=== PATIENT | male | born 1990 | race Two or more races ===

== ENCOUNTER 2018-05-31 08:22 | Day surgery (SDC) | payer OTHER ==
[~2018-05-31 08:22] MED LIST: Acetaminophen/HYDROcodone 325-10 MG Tab PO PRN; Bupivacaine 0.5% 30 ML SDV ONE; Bupivacaine 25%/EPINEPHrine/PF 30 ML ONE; Dexamethasone 4 MG/ML 5 ML MDV ONE; Ketorolac 10 MG Tab PO PRN; Lactated Ringers 1,000 ML IV SCH; Lidocaine 2% 5 ML SDV ONE; Midazolam 1 MG/ML 2 ML SDV ONE; Propofol 200 MG/20 ML SDV ONE; Sodium Chloride 0.9% 20 ML ONE; ceFAZolin 1 GM Vial ONE; ceFAZolin 2 GM in Premix Bag 1 BAG IV SCH; fentaNYL 100 MCG/2 ML SDV ONE; fentaNYL 250 MCG/5 ML SDV ONE
--- NOTE | 2018-05-31 08:57 | PCM.PREANE ---
Preanesthetic Assessment - Anesthesia/Transfusion/Family Hx Anesthesia History: Prior Anesthesia Without Reaction Family History of Anesthesia Reaction: No Transfusion History: No Prior Transfusion(s) - Review of Systems General: No Symptoms Pulmonary: No Symptoms Cardiovascular: No Symptoms Gastrointestinal: No Symptoms Neurological: No Symptoms Other: Reports: None - Physical Assessment NPO Status Date: 05/30/18 NPO Status Time: 21:00 Height: 1.65 m Weight: 81.647 kg ASA Class: 2 (healthy) Mental Status: Alert & Oriented x3 Airway Class: Mallampati = 2 Dentition: Reports: Normal Dentition ROM/Head Extension: Full Lungs: Clear to Auscultation - Allergies Allergies/Adverse Reactions: Allergies Allergy/AdvReac Type Severity Reaction Status Date / Time No Known Allergies Allergy Verified 05/31/18 08:57 - Anesthesia Plan Pre-Op Medication Ordered: None - Acknowledgements Anesthesia Type Planned: General Anesthesia, Regional Block Pt an Appropriate Candidate for the Planned Anesthesia: Yes Alternatives and Risks of Anesthesia Discussed w Pt/Guardian: Yes Pt/Guardian Understands and Agrees with Anesthesia Plan: Yes PreAnesthesia Questionnaire Gastrointestinal History: Reports: GERD Musculoskeletal History: Reports: Other (See Below) Other Musculoskeletal History: occasional back pain - Past Surgical History Head Surgeries/Procedures: Reports: None GI Surgical History: Reports: Cholecystectomy, Other (See Below) Other GI Surgeries/Procedures: pyloromyotomy as a - SUBSTANCE USE Smoking Status *Q: Never Smoker Recreational Drug Use History: No - HOME MEDS Home Medications: Home Meds Famotidine [Acid C.O.D. Biller] 1 tab PO ASDIRECTED PRN 05/26/18 [History] - CURRENT (IN HOUSE) MEDS Current Meds: Current Medications Hydrocodone Bitart/Acetaminophen ([place] 325-10 Mg) 1 - 2 tab PO Q4H PRN PRN Reason: Pain Cefazolin Sodium/Dextrose 2 gm (/ Premix) 50 mls @ 100 mls/hr IV ONCALL KAROL Lactated Ringer's (Ringers, Lactated) 1,000 mls @ 100 mls/hr IV ASDIRECTED [facility] Ketorolac Tromethamine (Toradol) 10 mg PO Q6H PRN PRN Reason: Pain Stop: 06/05/18 08:01 Discontinued Medications Bupivacaine HCl (Marcaine 0.5%) Confirm Administered Dose 30 ml .ROUTE .STK-MED ONE Stop: 05/31/18 07:46 Cefazolin Sodium (Ancef) Confirm Administered Dose 2 gm .ROUTE .STK-MED ONE Stop: 05/31/18 07:25 Dexamethasone (Dexamethasone) Confirm Administered Dose 20 mg .ROUTE .STK-MED ONE Stop: 05/31/18 07:38 Fentanyl (Sublimaze) Confirm Administered Dose 100 mcg .ROUTE .STK-MED ONE Stop: 05/31/18 07:24 Fentanyl (Sublimaze) Confirm Administered Dose 250 mcg .ROUTE .ST-MED ONE Stop: 05/31/18 07:25 Sodium Chloride (Normal Saline) Confirm Administered Dose 20 mls @ as directed .ROUTE .ST-MED ONE Stop: 05/31/18 07:25 Bupivacaine HCl/Epinephrine Bitart (Sensorc Mpf 0.25%-Epi 1:[id number]) Confirm Administered Dose 30 mls @ as directed .ROUTE .STK-MED ONE Stop: 05/31/18 07:46 Lidocaine (Xylocaine-Mpf 2%) Confirm Administered Dose 10 ml .ROUTE .ST-MED ONE Stop: 05/31/18 07:24 Midazolam HCl (Versed 1 Mg/Ml) Confirm Administered Dose 2 mg .ROUTE .STK-MED ONE Stop: 05/31/18 07:24 Propofol (Diprivan 20 Ml) Confirm Administered Dose 400 mg .ROUTE .STK-MED ONE Stop: 05/31/18 07:24
--- NOTE | 2018-05-31 09:00 | PCM.SN ---
- Free Text/Narrative Note: discussed inter-scalene block as a means of post operative pain management He verbalized understanding of procedure and would like to proceed
[2018-05-31] MEDS ORDERED: fentaNYL 100 MCG/2 ML SDV IVPUSH PRN (10:26)
[2018-05-31] MEDS ORDERED: HYDROmorphone 2 MG/ML SDV IVPUSH ONE (10:26)
--- NOTE | 2018-05-31 10:37 | PCM.SN ---
- Free Text/Narrative Note: [id number] Right inter-scalene block for post operative pain control: Chloroprep skin prep. Stimuplex needle set at 0.8 good twitch right delt and bicep diminishes at 0.4 gone at 0.3 returns at 0.8 instilled 40 mil of mixture 20 ml 0.5 % marcaine and 20 ml 0.25 % marcaine with epinephrine1:200 k and 8 mg decadron patient reports onset of numb sensation and decreased ability to lift arm 2 mg versed and 50 ug fentanyl were used for procedure sedation and vitals remained in stable limits
[2018-05-31] MEDS ORDERED: Propofol 200 MG/20 ML SDV ONE (10:40)
[2018-05-31] MEDS ORDERED: fentaNYL 100 MCG/2 ML SDV ONE (11:04)
[2018-05-31] MEDS ORDERED: Phenylephrine/Normal Saline 100 MCG/ML 10 ML Syringe ONE (11:16)
--- NOTE | 2018-05-31 11:32 | PCM.OPNOTE ---
- General Post-Op/Procedure Note Date of Surgery/Procedure: 05/31/18 Operative Procedure(s): R shoulder arthroscopy with SAD, limited debridement, and RTCR Post-Op Diagnosis: R shoulder impingement with deg ant labrum tear and RTC tear Anesthesia Technique: General ET Tube, Regional Block Primary Surgeon: Pricilla You Seed Expert: Adriana Odell in mLs: 10 Condition: Good Free Text/Narrative:: #[id number]
--- NOTE | 2018-05-31 13:26 | PCM.POSTAN ---
POST ANESTHESIA ASSESSMENT - MENTAL STATUS Mental Status: Alert, Oriented - RESPIRATORY Respiratory Status: Respiratory Rate WNL, Airway Patent, O2 Saturation Stable - CARDIOVASCULAR CV Status: Pulse Rate WNL, Blood Pressure Stable - GASTROINTESTINAL GI Status: No Symptoms - POST OP HYDRATION Hydration Status: Adequate & Stable
--- NOTE | 2018-05-31 13:27 | PCM48HPAN ---
Post Anesthesia Note - EVALUATION WITHIN 48HRS OF ANESTHETIC Vital Signs in Normal Range: Yes Patient Participated in Evaluation: Yes Respiratory Function Stable: Yes Airway Patent: Yes Cardiovascular Function Stable: Yes Hydration Status Stable: Yes Pain Control Satisfactory: Yes Nausea and Vomiting Control Satisfactory: Yes Mental Status Recovered: Yes Resp Rate: 16
--- NOTE | 2018-05-31 13:30 | OR ---
SURGEON: Pricilla You MD DATE OF PROCEDURE: 05/31/2018 PREOPERATIVE DIAGNOSIS: Right shoulder impingement. POSTOPERATIVE DIAGNOSES: 1. Right shoulder impingement. 2. Right shoulder degenerative anterior labral tear. 3. Right partial bursal sided rotator cuff tear. PROCEDURES: Right shoulder arthroscopy with: 1. Subacromial decompression with release of coracoacromial ligament and acromioplasty. 2. Limited debridement including debridement of degenerative anterior labral tear. 3. Arthroscopic rotator cuff repair. PAINT STOCKMAN: Adriana Odlel PA-C. ANESTHESIA: General with interscalene block. ESTIMATED BLOOD LOSS: 10 mL. TOURNIQUET TIME: 0 minutes. COMPLICATIONS: None. DVT PROPHYLAXIS: PAS boots to bilateral lower extremities. IMPLANTS USED: One 4.5 mm Arthrex Corkscrew anchor and one 4.75 mm Arthrex SwiveLock anchor. BRIEF HISTORY: Abundio is a 27-year-old male, who has had complaint of continued right shoulder pain. He previously had a work-related injury and then sustained a second injury. Conservative treatment was attempted. Due to his lack of response to conservative treatment, I did recommend surgical intervention. The risks and goals of procedure were discussed with the patient and were documented preoperatively. He agreed to proceed. DESCRIPTION OF PROCEDURE: The patient was properly identified and brought to the operating room. He was transferred from the OR cart and placed on the operating table in supine position. General anesthesia was administered. An interscalene block had been administered preoperatively. After adequate anesthesia was obtained, the patient was placed into a beach-chair type position. Care was taken to pad all bony prominences. The head was secured. The right upper extremity was then prepped in standard fashion using ChloraPrep solution. It was then sterilely draped. A time-out was performed to ensure correct site and procedure. Preoperative antibiotics were given. The surgical site had been marked preoperatively. A marking pen was used to identify the bony landmarks. Approximately 30 mL normal saline was introduced into the glenohumeral joint. A posterior portal incision was made. Blunt trocar and cannula were introduced into the glenohumeral joint. Camera, inflow, and outflow were assembled. The rotator interval was visualized. No significant synovitis was noted. An anterior portal was then established. The subscapularis was probed. It was found to be intact. No loose bodies were identified within the subscapular recess. The biceps was then visualized. It was pulled into the joint to visualize distally. No tearing or synovitis was noted. The attachment of the biceps to the superior labrum appeared intact and there was no evidence of tearing. The anterior labrum did show some minor degenerative tearing, which was resected with the shaver. The labrum appeared stable without any tears. The posterior labrum showed no signs of degenerative findings. The glenoid and humeral head were then inspected. No degenerative changes were found. The axillary pouch showed no loose bodies or synovitis. The rotator cuff was then visualized. The bare area was noted posteriorly. As I progressed forward, there appeared to be no articular-sided tearing of the rotator cuff. The instruments were then removed from the glenohumeral joint. The blunt trocar and cannula were introduced into the subacromial space. A lateral portal was established. Extensive bursitis was noted and an extensive bursectomy was performed. The coracoacromial ligament was released off the anterior surface of the acromion. He did have a downward sloping acromion. Acromioplasty was performed using a 5.0 mm bur. This provided good decompression of the subacromial space. The rotator cuff was then inspected. He had extensive softening and thinning of the anterior portion. There appeared to be a significant bursal sided tear of the anterior portion of the supraspinatus. I elected to take down the remainder of the attachment, which was quite thin. The julio c was then used to roughen the bony surface in this area. The cuff showed no sign of retraction and appeared to be robust. The awl was then placed just lateral to the articular margin in approximately 45 degree angle. The awl and tap were used and the corkscrew anchor was inserted without difficulty. It showed good purchase within the bone. The suture passer was then used to pass the sutures through the rotator cuff. The sutures were then tied down, which gave good reapproximation of the rotator cuff to the bony footprint. I elected to place a lateral row to provide additional compression to the rotator cuff. A 4.5 mm SwiveLock was then placed laterally. This provided good compression of the rotator cuff edges. The rotator cuff was then probed. The repair appeared to be nearly watertight. The instruments were then removed from the shoulder. The portal sites were closed with 3-0 nylon. Xeroform gauze was placed over the wounds and a bulky dressing was applied. He was placed into a shoulder immobilizer. He was awakened from his anesthetic and transferred back to the operating room cart. He was brought to recovery room in stable condition. All needle and sponge counts were correct. Postoperative plan will be to see the patient back at 10 to 14 day point for re- evaluation and suture removal. We will plan on starting physical therapy at that time for passive range of motion only. He will not be instructed in any active range of motion until he sees me for his followup appointment at the 6- week point. DENA / LENY /[id number] PATSY
== END 2018-05-31 14:45 | disposition home or self-care (01) ==
LOC: MW.SDS 08:22
PROVIDERS: ATTEND Orthopaedic Surgery
DX: M25.811 Other specified joint disorders, right shoulder (principal); S46.011A Strain of muscle(s) and tendon(s) of the rotator cuff of right shoulder, initial encounter; S43.491A Other sprain of right shoulder joint, initial encounter; M75.51 Bursitis of right shoulder; K21.9 Gastro-esophageal reflux disease without esophagitis; X58.XXXA Exposure to other specified factors, initial encounter
CPT/HCPCS: 29826; 29827; 64415; A9270; J0690; J1100; J2250; J3010; J7120; J2704